=== PATIENT | female | born 1975 | race Caucasian/White ===

== ENCOUNTER 2022-11-16 22:24 | Emergency (ER) | payer OTHER, SELFPAY ==
[2022-11-16 22:31] VITALS: BP 151/84; PULSE 77; RESP 18; TEMP 36.2; O2SAT 100; BMI 26.2
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
[2022-11-17 00:29] VITALS: PULSE 65; O2SAT 98
[2022-11-17 00:30] VITALS: BP 143/67; PULSE 65; O2SAT 98
== END 2022-11-17 00:48 | disposition home or self-care (01) ==
PROVIDERS: Emergency Provider Emergency Medicine
DX: S62.307A Unspecified fracture of fifth metacarpal bone, left hand, initial encounter for closed fracture (principal); S09.90XA Unspecified injury of head, initial encounter; S29.9XXA Unspecified injury of thorax, initial encounter; V89.2XXA Person injured in unspecified motor-vehicle accident, traffic, initial encounter
CPT/HCPCS: 70450; 71046; 72125; 73130; 99283; 99284